=== PATIENT | female | born 1945 | race Caucasian/White ===

== ENCOUNTER 2017-09-09 15:08 | Outpatient (CLI) | payer BC ==
[2017-09-09 15:20] LABS: BILIRUBIN,URINE NEGATIVE (NEGATIVE)
[2017-09-09 16:21] LABS: WBC,URINE >25 /HPF (0-5)
== END 2017-09-09 15:09 | disposition home or self-care (01) ==
LOC: LAB 15:08
PROVIDERS: ATTEND Internal Medicine
DX: R30.0 Dysuria (principal)
CPT/HCPCS: 81001; 87086

== ENCOUNTER 2018-04-05 12:10 | Outpatient (CLI) | payer BC ==
--- NOTE | 2018-04-05 15:06 | XRAY Report ---
TWO VIEW THORACIC SPINE: 04/05/2018 CLINICAL INDICATION: Pain after fall. FINDINGS: Frontal and lateral views of the thoracic spine demonstrate degenerative disk disease. There is no evidence of acute fracture. Minimal S-shaped scoliosis is present. IMPRESSION: DEGENERATIVE CHANGES. NO EVIDENCE OF ACUTE FRACTURE. TD: 04/05/2018 14:59
--- NOTE | 2018-04-05 15:07 | XRAY Report ---
TWO VIEW LUMBAR SPINE: 04/05/2018 CLINICAL INDICATION: Pain after fall. FINDINGS: Frontal and lateral views of the lumbar spine demonstrate degenerative disk and facet disease, worst at L4-L5. There is degenerative anterolisthesis of L4 on L5 by 1 cm, and minimal degenerative anterolisthesis of L3 on L4. No compression fracture is seen. The bowel gas pattern is unremarkable. IMPRESSION: DEGENERATIVE CHANGES, WORST AT L4-L5. NO EVIDENCE OF FRACTURE. TD: 04/05/2018 15:01
== END 2018-04-05 12:11 | disposition home or self-care (01) ==
LOC: DI 12:10
PROVIDERS: ATTEND Internal Medicine
DX: M47.896 Other spondylosis, lumbar region (principal); M51.36 Other intervertebral disc degeneration, lumbar region; M43.16 Spondylolisthesis, lumbar region; M51.34 Other intervertebral disc degeneration, thoracic region
CPT/HCPCS: 72070; 72100

== ENCOUNTER 2019-02-04 13:15 | Outpatient (CLI) | payer BC ==
--- NOTE | 2019-02-04 15:20 | XRAY Report ---
Reason: FEVER Procedure Date: 02/04/2019 Accession Number: [id number] / [id number] Procedure: XR - Chest 2 View X-Ray CPT Code: 76731 FULL RESULT: EXAM: CHEST RADIOGRAPHY EXAM DATE: 02/04/2019 02:11 PM. CLINICAL HISTORY: Fever. COMPARISON: CHEST 2 VIEW PA/LAT 01/31/2016 3:12 PM. TECHNIQUE: 2 views. FINDINGS: Lungs/Pleura: No focal opacities evident. No pleural effusion. No pneumothorax. Normal volumes. Mediastinum: Heart and mediastinal contours are unremarkable. Other: The bones are qualitatively osteopenic; this limits evaluation for underlying fractures or masses. IMPRESSION: No definite pneumonia is detected. [facility]
== END 2019-02-04 13:16 | disposition home or self-care (01) ==
LOC: DI 13:15
PROVIDERS: ATTEND Internal Medicine
DX: R50.9 Fever, unspecified (principal)
CPT/HCPCS: 36415; 71046; 87040

== ENCOUNTER 2019-09-29 09:03 | Outpatient (CLI) | payer BC | END 2019-09-29 09:04 | disposition home or self-care (01) | LOC: DI 09:03 | PROVIDERS: ATTEND Internal Medicine | DX: R01.1 Cardiac murmur, unspecified (principal); R07.9 Chest pain, unspecified | CPT/HCPCS: 93306 ==

== ENCOUNTER 2019-11-01 10:25 | Outpatient (CLI) | payer BC ==
--- NOTE | 2019-11-01 14:34 | CARDIAC PROCEDURE NOTE ---
DATE OF SERVICE: 11/01/2019 Physician: Sakshi Santiago MD EXERCISE CARDIOLITE PROTOCOL: Jairo. TIME: Four minutes, 44 seconds. METS: 6.73 REASON FOR STOPPING: Dyspnea. The patient had also accomplished the one minute exercise time after reaching 85% of her predicted maximum heart rate and receiving the injection. HEART RATE RESPONSE: Baseline 75 to maximum 148. BLOOD PRESSURE RESPONSE: Baseline 136/75 to maximum 189/84. SYMPTOMS: No chest pain. ST SEGMENT RESPONSE: No significant ST segment elevations or depressions. ARRHYTHMIAS: Occasional PVC. IMPRESSION: No symptoms and no significant electrocardiogram changes. CONCLUSION: Await Cardiolite portion of test. TD: 11/01/2019 13:16
--- NOTE | 2019-11-01 15:07 | Nuclear Medicine Report ---
Reason: CARDIAC MURMUR, CHEST PAIN Procedure Date: 11/01/2019 Accession Number: [id number] / [id number] Procedure: NM - Myocardial Perfusion STR/RST CPT Code: Final Report FULL RESULT: EXAM: SINGLE-ISOTOPE EXERCISE STRESS TEST. SINGLE-ISOTOPE AND ONE-DAY REST/STRESS MYOCARDIAL PERFUSION SCANS WITH TOMOGRAPHIC IMAGING, QUANTITATIVE ANALYSIS, WALL MOTION ANALYSIS AND CALCULATION OF EJECTION FRACTION. EXAM DATE: 11/01/2019 02:18 PM. CLINICAL HISTORY: CARDIAC MURMUR, CHEST PAIN. COMPARISON: None. TECHNIQUE: A rest myocardial perfusion scan was done with tomography after the intravenous administration of 10.7 mCi Tc-99m sestamibi. After an appropriate delay, a treadmill exercise stress was performed according to department protocol. The patient exercised for 4 minutes and 44 seconds. The maximum heart rate was 140 bpm, which was more than 85% of the maximum predicted heart rate of 144 bpm. At approximately peak heart rate, 43.2 mCi of Tc-99m sestamibi was injected for stress myocardial perfusion scan. Motion correction was applied when appropriate. Gated tomographic images were obtained for wall motion analysis and computation of left ventricular ejection fraction. FINDINGS: Perfusion images: Left ventricular chamber size appears normal at rest and unchanged at stress. No convincing fixed perfusion deficits. No convincing reversible perfusion deficits. SSS 1, SRS 0, SDS 1. Gated images: No convincing focal wall motion abnormality. Calculated left ventricular EDV 47 mL, ESV 7 mL. The left ventricular ejection fraction is estimated at 85% (normal > 50%). IMPRESSION: 1. No convincing reversible perfusion deficits to indicate stress-induced ischemia. 2. No convincing fixed perfusion deficits. 3. Left ventricular ejection fraction of 85% (normal > 50%). Please correlate findings with stress ECG tracings and procedure notes. [facility]
== END 2019-11-01 10:26 | disposition home or self-care (01) ==
LOC: DI 10:25
PROVIDERS: ATTEND Internal Medicine
DX: R01.1 Cardiac murmur, unspecified (principal); R07.9 Chest pain, unspecified
CPT/HCPCS: 78452; 93017; A9500

== ENCOUNTER 2021-09-30 08:00 | Outpatient (CLI) | payer BC ==
[2021-09-30 17:06] LABS: B. PARAPERTUSSIS- RESP PCR PAN NOT DETECTED; B. PERTUSSIS- RESP PCR PANEL NOT DETECTED; C. PNEUMONIAE- RESP PCR PANEL NOT DETECTED; CORONAVIRUS 229E-RESP PCR NOT DETECTED; CORONAVIRUS HKU1-RESP PCR NOT DETECTED; CORONAVIRUS NL63-RESP PCR NOT DETECTED; CORONAVIRUS OC43-RESP PCR NOT DETECTED; HUMAN METAPNEUMOVIRUS NOT DETECTED; INFLUENZA A- RESP PCR PANEL NOT DETECTED; INFLUENZA B - RESP PCR PANEL NOT DETECTED; M. PNEUMONIAE- RESP PCR PANEL NOT DETECTED; PARAINFLUENZA VIRUS 1 NOT DETECTED; PARAINFLUENZA VIRUS 2 NOT DETECTED; PARAINFLUENZA VIRUS 3 NOT DETECTED; PARAINFLUENZA VIRUS 4 NOT DETECTED; RHINOVIRUS/ENTEROVIRUS NOT DETECTED; RSV- RESP PCR PANEL NOT DETECTED; SARS-CoV-2 -RESP PCR PANEL NOT DETECTED
== END 2021-09-30 23:59 ==
LOC: LAB.R 08:00
PROVIDERS: ATTEND Internal Medicine
DX: Z11.52 Encounter for screening for COVID-19 (principal)
CPT/HCPCS: 0202U

== ENCOUNTER 2021-11-06 08:42 | Outpatient (CLI) | payer BC ==
[2021-11-06 11:23] LABS: B. PARAPERTUSSIS- RESP PCR PAN NOT DETECTED; B. PERTUSSIS- RESP PCR PANEL NOT DETECTED; C. PNEUMONIAE- RESP PCR PANEL NOT DETECTED; CORONAVIRUS 229E-RESP PCR NOT DETECTED; CORONAVIRUS HKU1-RESP PCR NOT DETECTED; CORONAVIRUS NL63-RESP PCR NOT DETECTED; CORONAVIRUS OC43-RESP PCR NOT DETECTED; HUMAN METAPNEUMOVIRUS NOT DETECTED; INFLUENZA A- RESP PCR PANEL NOT DETECTED; INFLUENZA B - RESP PCR PANEL NOT DETECTED; M. PNEUMONIAE- RESP PCR PANEL NOT DETECTED; PARAINFLUENZA VIRUS 1 NOT DETECTED; PARAINFLUENZA VIRUS 2 NOT DETECTED; PARAINFLUENZA VIRUS 3 NOT DETECTED; PARAINFLUENZA VIRUS 4 NOT DETECTED; RHINOVIRUS/ENTEROVIRUS NOT DETECTED; RSV- RESP PCR PANEL NOT DETECTED; SARS-CoV-2 -RESP PCR PANEL NOT DETECTED
== END 2021-11-06 08:43 | disposition home or self-care (01) ==
LOC: LAB.R 08:42
PROVIDERS: ATTEND Internal Medicine
DX: Z20.822 Contact with and (suspected) exposure to COVID-19 (principal)
CPT/HCPCS: 0202U

== ENCOUNTER 2021-12-20 08:00 | Outpatient (CLI) | payer BC ==
[2021-12-20 16:08] LABS: ALBUMIN/GLOBULIN RATIO 1.6 (1.0-2.2); BILIRUBIN,TOTAL 1.1 mg/dL (0.2-1.0); CREATININE 0.7 mg/dL (0.4-1.0); POTASSIUM 4.1 mmol/L (3.5-5.0); TOTAL PROTEIN 6.5 g/dL (6.7-8.2)
[2021-12-20 16:13] LABS: BASOPHILS % (AUTO) 0.8 %; EOSINOPHILS # (AUTO) 0.3 10^3/uL (0.0-0.7); EOSINOPHILS % (AUTO) 4.9 %; HGB - HEMOGLOBIN 13.3 g/dL (12.0-16.0); LYMPHOCYTES # (AUTO) 1.5 10^3/uL (1.5-3.5); LYMPHOCYTES % (AUTO) 29.1 %; MEAN CORPUSCULAR HEMOGLOBIN 32.7 pg (27.0-31.0); MEAN CORPUSCULAR HGB CONC 34.1 g/dL (32.0-36.0); MEAN CORPUSCULAR VOLUME 95.8 fL (81.0-99.0); MEAN PLATELET VOLUME 9.1 fL (7.9-10.8); MONOCYTES # (AUTO) 0.5 10^3/uL (0.0-1.0); MONOCYTES % (AUTO) 10.3 %; NEUTROPHILS # (AUTO) 2.9 10^3/uL (1.5-6.6); NEUTROPHILS % (AUTO) 54.7 %; PLT - PLATELET COUNT 243 10^3/uL (130-450); RED BLOOD COUNT 4.07 10^6/uL (4.20-5.40); RED CELL DISTRIBUTION WIDTH 12.6 % (12.0-15.0); WHITE BLOOD COUNT 5.3 x10^3/uL (4.8-10.8)
[2021-12-20 16:18] LABS: CHOL/HDL RATIO 2.4 (<4.4); CHOLESTEROL 258 mg/dL; HDL CHOLESTEROL 108 mg/dL; LDL CHOLESTEROL,CALCULATED 138 mg/dL; LDL/HDL RATIO 1.3 (<4.4); TRIGLYCERIDES 62 mg/dL; VLDL CHOLESTEROL 12 mg/dL
[2021-12-20 17:12] LABS: ESTIMATED AVERAGE GLUCOSE 111 mg/dL (70-100); HEMOGLOBIN A1c% 5.5 % (4.27-6.07)
== END 2021-12-20 23:59 | disposition home or self-care (01) ==
LOC: LAB.R 08:00
PROVIDERS: ATTEND Internal Medicine
DX: D64.9 Anemia, unspecified (principal); K12.0 Recurrent oral aphthae; J45.909 Unspecified asthma, uncomplicated; N95.2 Postmenopausal atrophic vaginitis; M54.9 Dorsalgia, unspecified; R20.8 Other disturbances of skin sensation; K90.0 Celiac disease; Z88.8 Allergy status to other drugs, medicaments and biological substances; E55.9 Vitamin D deficiency, unspecified; F32.A Depression, unspecified; R19.7 Diarrhea, unspecified; K57.92 Diverticulitis of intestine, part unspecified, without perforation or abscess without bleeding; R06.00 Dyspnea, unspecified; R74.8 Abnormal levels of other serum enzymes; R53.83 Other fatigue; R73.01 Impaired fasting glucose; M85.80 Other specified disorders of bone density and structure, unspecified site; R53.1 Weakness
CPT/HCPCS: 80053; 80061; 82306; 83036; 83721; 84443; 85025

== ENCOUNTER 2022-04-24 08:00 | Outpatient (CLI) | payer BC | END 2022-04-24 23:59 | disposition home or self-care (01) | LOC: LAB.R 08:00 | PROVIDERS: ATTEND Internal Medicine | DX: R19.7 Diarrhea, unspecified (principal) | CPT/HCPCS: 83630; 87045; 87046; 87329; 87427; 87493 ==

== ENCOUNTER 2023-03-25 08:52 | Outpatient (CLI) | payer BC | END 2023-03-25 08:53 | disposition home or self-care (01) | LOC: LAB 08:52 | PROVIDERS: ATTEND Internal Medicine | DX: K21.9 Gastro-esophageal reflux disease without esophagitis (principal); R19.7 Diarrhea, unspecified; Z77.011 Contact with and (suspected) exposure to lead; D47.02 Systemic mastocytosis | CPT/HCPCS: 36415; 83655 ==

== ENCOUNTER 2023-04-01 10:31 | Outpatient (CLI) | payer BC | END 2023-04-01 10:32 | disposition home or self-care (01) | LOC: LAB 10:31 | PROVIDERS: ATTEND Internal Medicine | DX: D47.02 Systemic mastocytosis (principal); R19.7 Diarrhea, unspecified; K21.9 Gastro-esophageal reflux disease without esophagitis; Z77.011 Contact with and (suspected) exposure to lead | CPT/HCPCS: 83655 ==

== ENCOUNTER 2023-04-13 13:43 | Outpatient (CLI) | payer BC | END 2023-04-13 13:44 | disposition home or self-care (01) | LOC: LAB 13:43 | PROVIDERS: ATTEND Internal Medicine | DX: Z77.018 Contact with and (suspected) exposure to other hazardous metals (principal); Z77.011 Contact with and (suspected) exposure to lead | CPT/HCPCS: 81599; 82300 ==

== ENCOUNTER 2023-07-14 10:19 | Outpatient (CLI) | payer BC | END 2023-07-14 10:20 | disposition home or self-care (01) | LOC: NS 10:19 | PROVIDERS: ATTEND Internal Medicine | DX: Z71.3 Dietary counseling and surveillance (principal); K90.0 Celiac disease; E73.9 Lactose intolerance, unspecified; K58.9 Irritable bowel syndrome, unspecified | CPT/HCPCS: 97802 ==